=== PATIENT | female | born 1995 | race Caucasian/White ===

== ENCOUNTER 2016-11-06 19:04 | Emergency (ER) | payer OTHER ==
[2016-11-06 19:01] LABS: INFLUENZA A NEG (NEG); INFLUENZA B NEG (NEG)
[~2016-11-06 19:04] MED LIST: ADDERALL5 MG PO; AUGMENTIN875 MG PO; BACTRIM DS TABL1 TA1 PO; DIFLUCAN100 MG PO; PHENERGAN25 M1 PO; TYLENOL #3 PO
[2016-11-06 19:17] LABS: URINE APPEARANCE CLEAR; URINE BILIRUBIN NEG (NEG); URINE BLOOD NEG (NEG); URINE COLOR YELLOW; URINE GLUCOSE NEG (NORM); URINE KETONE NEG (NEG); URINE LEUKOCYTE ESTERASE 1+ (NEG); URINE NITRATE NEG (NEG); URINE PROTEIN NEG (NEG); URINE SPECIFIC GRAVITY <=1.005 (1.003-1.035); URINE UROBILINOGEN 0.2 MG/DL (NORM)
[2016-11-06 19:20] LABS: MICRO INDICATED? YES; URINE SOURCE CLEAN CATCH
[2016-11-06 19:21] LABS: CULTURE INDICATED? NO; URINE BACTERIA NEG (NEG); URINE MUCUS PRESENT; URINE SQUAMOUS EPITHELIAL CELL OCCAS /[HPF]; URINE WBC 0-2 /[HPF] (0-5)
[2016-11-22] MEDS ORDERED: MUCINEX D ER T1 EACH PO (18:38)
[2016-11-22] MEDS ORDERED: ROBITUSSIN A-C S5 ML (18:38)
== END 2016-11-06 19:42 | disposition home or self-care (01) ==
LOC: SED 19:04
PROVIDERS: Nurse Practitioner; Physician Assistant
DX: B34.9 Viral infection, unspecified (principal); R03.0 Elevated blood-pressure reading, without diagnosis of hypertension; F32.9 Major depressive disorder, single episode, unspecified; F17.210 Nicotine dependence, cigarettes, uncomplicated
CPT/HCPCS: 81003; 84703; 87651; 87804; 87880; 99283

== ENCOUNTER 2016-11-22 19:25 | Emergency (ER) | payer OTHER ==
--- NOTE | ~2016-11-22 | CR63 ---
[facility]. [facility] A Service of [facility] & [facility] RADIOLOGY TEXT RESULTS PATIENT: GILMER ELIZABETH LOCATION: SED : [birth year] UNIT #: [id number] AGE: [address]: DESEAN ADAMES SEX: F ORDER DR: [id number] [place] [id number] E MR#: [id number] Acc #: [id number] NAME: GILMER ELIZABETH : 1995 SEX: F STUDY DATE/TIME: 11/22/2016 19:50 UNIT: SED ROOM: STUDY DESCRIPTION: CR Chest 2 View Attending Physician: Desean Adames Ordering Physician: Staff Doctor Not On Primary Care Physician: [facility] [email or web address], MEDICAL IMAGING REPORT This report is preliminary unless electronic signature is present. EXAM Two-view chest 11/22/2016 INDICATION Cough and congestion. Positive smoking history. FINDINGS PA and lateral views of the chest without comparison. Heart and mediastinal contours are normal. Lungs are clear. No pleural effusion. IMPRESSION Chest radiograph. Dictated by... Linus Cabrales M.D. THIS IS AN ELECTRONICALLY VERIFIED REPORT Linus Cabrales M.D. at 11/23/2016 12:15 PM JANELL/lucie TD: 11/23/2016 10:23 JOB #: [id number] MEDICAL IMAGING REPORT
[~2016-11-22 19:25] MED LIST changes: +MUCINEX D ER T1 EACH PO; +ROBITUSSIN A-C S5 ML
[2016-11-22 19:58] LABS: INFLUENZA A NEG (NEG); INFLUENZA B NEG (NEG)
== END 2016-11-22 21:27 | disposition home or self-care (01) ==
LOC: SED 19:25
PROVIDERS: Nurse Practitioner
DX: J45.901 Unspecified asthma with (acute) exacerbation (principal); F32.9 Major depressive disorder, single episode, unspecified; F17.210 Nicotine dependence, cigarettes, uncomplicated
CPT/HCPCS: 71020; 87804; 94640; 99283